=== PATIENT | male | born 1960 | race Caucasian/White ===

== ENCOUNTER 2020-08-07 13:49 | Day surgery (SDCO) | payer OTHER ==
[~2020-08-07] VITALS: Ht 182.9 cm; Wt 91.2 kg
[~2020-08-07 13:49] MED LIST: ASPIRIN CHEWABL81 MG PO; LYCOPENE10 MG PO; PERCOCET 5-3251 EACH PO; PRINIVIL20 MG PO
[2020-08-07 14:23] LABS: BASOPHIL 0.4 % (0-2); EOSINOPHIL 2.7 % (0-5); HCT 47.6 % (42.0-52.0); HGB 16.7 g/dl (13.2-18.0); LYMPHOCYTE 22.5 % (15-48); MCH 31.1 pg (25.0-31.0); MCHC 35.1 g/dL (32.0-36.0); MCV 88.6 fL (78.0-100.0); MPV 12.4 fL (6.0-9.5); NEUTROPHIL 66.2 % (41-80); NRBC 0; PLT 140 K/uL (150-400); RBC 5.37 M/uL (4.70-6.00); RDW 12.7 % (11.5-14.0); WBC 5.3 K/uL (4.0-10.5)
[2020-08-07 14:44] LABS: ALBUMIN 3.5 g/dL (3.4-5.0); BILIRUBIN - TOTAL 0.7 mg/dL (0.2-1.0); BUN/CREAT RATIO (CALC) 17.7 RATIO; CREATININE 1.13 mg/dL (0.67-1.17); GLOBULIN (CALCULATION) 3.1 g/dL; POTASSIUM 4.1 mmol/L (3.5-5.1); TOTAL PROTEIN 6.6 g/dL (6.4-8.2)
[2020-08-07 14:51] LABS: BILIRUBIN NEGATIVE (NEGATIVE); BLOOD NEGATIVE Ery/uL (NEGATIVE); CLARITY CLEAR (CLEAR); COLOR YELLOW (YELLOW); GLUCOSE (U) NORMAL (NORMAL); LEUKOCYTES NEGATIVE Leu/uL (NEGATIVE); NITRITE NEGATIVE (NEGATIVE); PROTEIN NEGATIVE (NEGATIVE); SPECIFIC GRAVITY 1.025 (1.001-1.030)
[2020-08-07 14:54] LABS: CKMB 0.6 ng/mL (0.0-3.6)
[2020-08-07] MEDS ORDERED: LYCOPENE10 MG PO (17:41)
[2020-08-07] MEDS ORDERED: CLARITIN10 MG PO (17:41)
[2020-08-07] MEDS ORDERED: PREVAGEN (17:41)
[2020-08-07] MEDS ORDERED: CENTRUM PO (17:42)
[2020-08-07 20:22] LABS: CHOLESTEROL 182 mg/dL (<200); HDL 56 mg/dL (40-60); LDL - DIRECT 103 mg/dL (<100); TRIGLYCERIDES 125 mg/dL (<150)
--- NOTE | 2020-08-07 21:34 | NUR ---
2030 PT STATES HAVING CHEST HEAVINESS. RATES 2/. NITRO PASTE APPLIED TO CHEST. 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
[2020-08-08 05:50] LABS: HCT 45.3 % (42.0-52.0); MCH 30.8 pg (25.0-31.0); MCHC 35.3 g/dL (32.0-36.0); MCV 87.1 fL (78.0-100.0); MPV 12.2 fL (6.0-9.5); RBC 5.2 M/uL (4.70-6.00); RDW 12.5 % (11.5-14.0); WBC 5.1 K/uL (4.0-10.5)
[2020-08-08 06:13] LABS: CREATININE 1.09 mg/dL (0.67-1.17); POTASSIUM 4.2 mmol/L (3.5-5.1)
[2020-08-08] MEDS ORDERED: ASPIRIN EC81 MG PO (11:53)
[2020-08-08] MEDS ORDERED: LIPITOR20 MG PO (11:56)
== END 2020-08-08 13:10 | disposition home or self-care (01) ==
LOC: FER 13:49 → FMS 16:28
PROVIDERS: Nurse Practitioner; ADMIT Hospitalist
DX: R07.89 Other chest pain (principal); M25.512 Pain in left shoulder; T78.40XA Allergy, unspecified, initial encounter; Z87.891 Personal history of nicotine dependence; Z85.46 Personal history of malignant neoplasm of prostate; Z98.890 Other specified postprocedural states; Z79.82 Long term (current) use of aspirin; Z79.899 Other long term (current) drug therapy; Z20.822 Contact with and (suspected) exposure to COVID-19
CPT/HCPCS: 36415; 71045; 80048; 80053; 80061; 81003; 82553; 83690; 84484; 85025; 93005; G0378; J1650; U0002